=== PATIENT | male | born 1940 | race Caucasian/White ===

== ENCOUNTER 2018-08-26 22:59 | Observation (INO) ==
[2018-08-26] MEDS ORDERED: MORPHINE SULFATE 4 MG/1 ML IVP ONE (23:32)
[2018-08-26] MEDS ORDERED: MORPHINE SULFATE 4 MG/1 ML ONE (23:42)
--- NOTE | 2018-08-26 23:55 | PDOC ---
HPI - History of Present Illness History of Present Illness: There is a very nice 78-year-old gentleman with end-stage lung cancer enrolled in hospice at home on OxyContin for pain control from Dr. Vernon. Patient comes in the ER for uncontrolled pain. They've refused labs telemetry doesn't do not want any other treatment initiated other than pain control.pt is unresponsive and family had him brought in by ambulance After extensive discussion of treatment options patient and family request treatment of primary symptoms of pain and discomfort. Patient is already enrolled in hospice. Patient and family understand that the patient will without more aggressive medical therapy or procedures but refused those options. The patient's wishes is to just treat the primary symptoms of pain he requests treatment of pain and discomfort only and his family agrees Past Medical History Medical History: Lung Cancer In the Past 12 Months, Have Used or Abuse Any of the Following Substance: None Medication / Allergies Home Medications: Home Medications Medication Instructions Recorded Confirmed Type hospital bed #1 ea 08/17/18 08/17/18 Rx oxycodone 5 mg tablet 5 mg PO Q4-6H PRN #60 tab 08/17/18 08/21/18 Rx wheel chair #1 ea 08/17/18 08/17/18 Rx Allergies/Adverse Reactions: Allergies Allergy/AdvReac Type Severity Reaction Status Date / Time No Known Allergies Allergy Verified 08/21/18 09:54 Review of Systems - Review of Systems All Systems: Reviewed & No Additional Complaints Except as Stated Exam - General Additional General Exam Details: unresponsive - Respiratory Respiratory Exam: POSITIVE: Coarse Breath Sounds - Cardiovascular Cardiovascular Exam: POSITIVE: RRR, No Murmur, No Clicks, No Gallops, No Rubs, PMI Non-Displaced - GI/Abdominal GI/Abdominal Exam: POSITIVE: Normal Bowel Sounds, Non Tender, Non Distended, Soft, No Masses, No Hepatomegaly, No Splenomegaly, No Organomegaly - Extremities Extremities Exam: POSITIVE: No Clubbing Present, No Edema Present, No Cyanosis Present Assessment and Plan - Patient Problems (1) Pain Current Visit: Yes Status: Acute Code(s): R52 - Pain, unspecified (2) Hospice care Current Visit: No Status: Acute Code(s): Z51.5 - Encounter for palliative care (3) Lung cancer, hilus Current Visit: No Status: Acute Code(s): C34.00 - Malignant neoplasm of unspecified main bronchus - Assessment / Plan Additional Assessment/Plan Details: #1 intractable pain secondary to lung cancer please see my HPI we'll treat with hydromorphone 1 g every 3 hours. Patient's and family wishes her to treat the primary symptoms of discomfort and pain. We will treat pain control 2 respirations between 10 and 11. Patient and family understand that this could result in the understand this very clearly and add on any further therapy is that they already are involved in hospice will start morphine valeria discussed with nursing all family members in agreement
[2018-08-27] MEDS ORDERED: MORPHINE SULFATE 4 MG/1 ML IVP ONE (00:01)
[2018-08-27] MEDS ORDERED: oxyCODONE IR Tab 5 MG TAB PO PRN (00:22)
[2018-08-27] MEDS ORDERED: ONDANSETRON 4 MG/2 ML VIAL IVP PRN (00:22)
[2018-08-27] MEDS ORDERED: ACETAMINOPHEN 325 MG TABLET PO PRN (00:22)
[2018-08-27] MEDS ORDERED: HYDROmorphone 2 MG/1 ML IVP PRN (00:22)
[2018-08-27] MEDS ORDERED: DOCUSATE 100 MG CAPSULE PO PRN (00:22)
[2018-08-27] MEDS ORDERED: LIDOCAINE W/ SODIUM BICARB 0.5 ML SYR SUBD PRN (00:22)
[2018-08-27] MEDS ORDERED: CALCIUM CARBONATE 500 MG (TUMS) CHEWABLE TABLET PO PRN (00:22)
[2018-08-27 01:13] VITALS: BP 116/86; TEMP 97; O2SAT 87
[2018-08-27] MEDS ORDERED: MORPHINE SULFATE 2 MG/1 ML IVP PRN (01:14)
[2018-08-27] MEDS ORDERED: Morphine Drip 250mg/250ml 250 MG/250 ML PLAST..BAG IV SCH (01:15)
[2018-08-27] MEDS ORDERED: Sodium Chloride 0.9% 1,000 ML PRIMARY IV SCH (01:15)
[2018-08-27] MEDS ORDERED: Keys-Morphine PCA ONE (01:43)
[2018-08-27] MEDS ORDERED: Keys-Morphine Palliative Care ONE (01:44)
[2018-08-27] MEDS: Hypromellose/Glycerin/PEG 400 Ophth Soln 15 ML DROPS EACH EYE SCH ×3 (02:18→04:44)
[2018-08-27 05:09] VITALS: RESP 18
--- NOTE | 2018-08-27 05:18 | PDOC ---
General Adult HPI - General Chief Complaint: General Medical Stated Complaint: PAIN CONTROL Date Seen by Provider: 08/26/18 Time Seen by Provider: 23:30 Source: POSITIVE: Other (daughter) Exam Limitations: POSITIVE: Clinical condition (Patient unresponsive to questions) Nurse's Notes Reviewed & Considered: Yes EMS Report Reviewed & Considered: Verbal - History of Present Illness Initial Comment: The patient is a 78-year-old male who is brought to the emergency room by ambulance. On 11 August the patient was diagnosed with lung cancer, and the patient has elected not to be further evaluated or treated for this problem. Patient was set up on hospice. Patient has been receiving oxycodone from his primary care provider for his generalized pain, and also lorazepam for anxiety/agitation. Patient is brought in by ambulance which was requested by family members since the patient's condition has declined and they state that his pain is not being adequately controlled by oxycodone. They state that hospice care had arranged for the patient received morphine, but so far this has not been accomplished. The patient is adamant that he wants no treatment of any kind, including hydration. The patient has expressed his desire that he wishes only pain control. Family members report no fevers or chills. No nausea or vomiting. He states he has had only a little putting to eat yesterday and that he is for the most part not eating or drinking, and his mentation is becoming more and more unresponsive. Have you received a tetanus shot in the past 10 years?: Unknown Body Location Affected: REPORTS: Other (As above) Timing: REPORTS: Gradual, Getting Worse Duration: >1 week Quality: REPORTS: Other (Patient has complained of "pain all over" since his diagnosis of lung cancer on 11 August) Context: REPORTS: Other (As above) Modifying Factors: improves with: Nothing Similar Symptoms Previously: Yes Recent Care Received: REPORTS: Recently Seen, Treated by MD Any Prior Injuries Related to Current Complaint?: No - Patient Home Medications Home Medications: Home Medications hospital bed #1 ea 08/17/18 oxycodone 5 mg tablet 5 mg PO Q4-6H PRN #60 tab 08/17/18 wheel chair #1 ea 08/17/18 - Patient Allergies Allergies/Adverse Reactions: Allergies Allergy/AdvReac Type Severity Reaction Status Date / Time No Known Allergies Allergy Verified 08/21/18 09:54 Past Medical History - heen HEENT History: Denies History Cardiovascular History: Hypertension, Hyperlipidemia Respiratory History: Other (please comment) Additional Respiratory History: LUNG CANCER Gastrointestinal History: Denies History Genitourinary History: Denies History Endocrine History: Denies History Musculoskeletal History: Other (please comment) Prosthesis or Implant: No Additional Musculoskeletal History: RIGHT UPPER AND LOWER EXTREM WEAKNESS/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 Neurological History: CVA, Other (please comment) Additional Neurological History: STROKE- RIGHT SIDED DEFICIT AND GARBLED SPEECH Blood Disorders: Denies History Psychiatric History: Denies History History of Sexually Transmitted Diseases: No Cancer History: Lung In Past Year Been Physically Harmed or Verbally Threatened: No History of MDRO: Unknown History of Other Communicable Diseases: No Tobacco Use: Unknown If Ever Smoked Alcohol Use: Occasionally In the Past 12 Months, Have Used or Abuse Any Substance: None Previous Surgical History: Yes Type / Date of Surgery: TONSILECTOMY Anesthesia Reactions: No Malignant Hyperthermia: No Significant Family History: No pertinent family hx Past Medical History Reviewed: Reviewed - No Changes ROS - Limitations ROS Limitations: Clinical Condition (Patient unresponsive to verbal stimuli by physician. He has been known to his family members that he is having generalized pain.) Constitution: REPORTS: Denies Symptoms Cardiovascular: REPORTS: Denies Cardiac Symptoms Respiratory: REPORTS: Denies Resp Symptoms Neurological: REPORTS: Denies Neuro Symptoms Gastrointestinal: REPORTS: Denies GI Symptoms Endocrine: REPORTS: Denies Symptoms Musculoskeletal: REPORTS: Denies MS Symptoms Genitourinary: REPORTS: Denies Symptoms Eyes: REPORTS: Denies Symptoms ENT: REPORTS: Denies Symptoms Skin: REPORTS: Denies Skin Symptoms Lympathic: REPORTS: Denies Lympathic Symptoms Immunologic: POSITIVE: Denies Symptoms Psychiatric: POSITIVE: Other (Obtunded) General Adult Exam - General Appearance General Appearance: POSITIVE: No Acute Distress, Obtunded. NEGATIVE: Alert, Cooperative - HEENT HEENT: POSITIVE: Head Inspection Nml, Eyes Inspection Nml, Ears Inspection Nml, Nose Inspection Nml, Oral/Dental Inspect. Nml, Pharynx Inspect. Nml, PERRL, EOMI - Pupils Pupil Size: 3 mm: Bilateral (PERRLA) - Neck Neck: POSITIVE: Normal Inspection, Thyroid Normal - Respiratory Respiratory: POSITIVE: Rales (Right lung base) - Cardiovascular Cardiovascular: POSITIVE: Regular Rate & Rhythm, No Murmur, No Gallop, PMI Normal Peripheral Pulses: Radial (R): 2+, Radial (L): 2+ - Abdomen Abdomen: Soft: (All Quadrants), Normal Bowel Sounds: (All Quadrants), Denies Tenderness: (All Quadrants), No Splenomegaly: (All Quadrants), No Hepatomegaly: (All Quadrants), No Guarding: (All Quadrants), No Rebound: (All Quadrants), No Palpable Pulse: (All Quadrants), No Palpabale Mass: (All Quadrants), No Distention: (All Quadrants), No Rigidity: (All Quadrants) - Back Back: POSITIVE: Normal Inspection - Skin Skin: POSITIVE: Normal Color, Warm, Dry, No Rash - Extremities Extremity: Non-Tender: (All Extremities), Normal ROM: (All Extremities), Normal Inspection: (All Extremities) - Neurological / Psychological Neurological: 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 Patient was given 4 mg of morphine sulfate in the emergency room. Patient is admitted by hospitalist for comfort measures only. Status: POSITIVE: Unchanged Antibiotics Given: No - Consult Consult (If Yes, Name of Consulting MD & Time Called): Yes (, hospitalist,[id number] ) Consulting MD will see pt:: POSITIVE: [facility] [place] Admit Counseled: POSITIVE: Family, RE: DX, RE: Need for F/U Patient Care Time - Estimated PCT Patient Care Time (In Minutes): 30 Vital Signs - Recent Vital Signs Vital Signs: Vital Signs (Last 8 hours) Temp Pulse Resp BP Pulse Ox 08/26/18 23:00 97.0 F 103 H 26 H 116/86 87 - VS Reviewed Vital Signs Reviewed: Yes Discharge Clinical Impression: History of stroke, Lung cancer, hilus, Pain, Comfort measures only status Discharge Disposition: Admit to Inpatient Condition: Poor Date Decision to Admit to Inpatient: 08/26/18 Time Decision to Admit to Inpatient: 23:30
--- NOTE | 2018-08-27 09:58 | DCSUMMARY ---
Hospitalization Summary Hospital Course: Final Discharge Diagnosis: End-stage lung cancer Diagnostic Data, Laboratory Data, and Procedures of Signifigance: History and Physical pertinent to Admission: Course of Hospitalization: This very nice 78-year-old gentleman with a history of lung cancer enrolled in hospice. Family brought him into the emergency room for uncontrolled pain. He was unresponsive at home and was brought in by ambulance was admitted for treatment of primary symptoms of pain and discomfort. Morphine drip was init iated to keep respirations between 10 and 11. Please see my H&P of a few hours ago. 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 As per discharge assessments above 2. Disposition: 3. Condition on discharge, stable and improved. 4. Diet: regular diet 5. Activities: resume normal activities 6. Follow-Up: 1. [PCP] 2. 7. Medications at the Time of Discharge: 8. Time, care, counseling and coordination of care for this discharge is greater than 30 minutes. Exam - Vitals Vital Signs: Vital Signs Temperature 97.0 F Temperature Source Temporal Artery Scan Pulse Rate [Pulse Oximeter] 103 Pulse Rate [Pulse Oximeter] 116 Respiratory Rate 18 Blood Pressure [Right Arm] 116/86 Pulse Ox 87 Oxygen Delivery Method Room Air Height 5 ft 7 in Weight 125 lb Patient Problems - Patient Problem List (1) Pain Status: Acute Code(s): R52 - Pain, unspecified Category: Medical (2) Hospice care Status: Acute Code(s): Z51.5 - Encounter for palliative care Category: Medical (3) Lung cancer, hilus Status: Acute Code(s): C34.00 - Malignant neoplasm of unspecified main bronchus Category: Medical
== END 2018-08-27 05:35 | disposition expired ==
LOC: ER 22:59 → MED/SURG 22:59
PROVIDERS: ADMIT Internal Medicine; ATTEND Internal Medicine